=== PATIENT | male | born 1970 | race Caucasian/White ===

== ENCOUNTER 2024-04-10 16:36 | Emergency (ER) | payer OTHER, SELFPAY ==
[2024-04-10 16:41] VITALS: BP 145/91; PULSE 88; RESP 22; TEMP 36.7; O2SAT 100
--- NOTE | 2024-04-12 08:17 | NUR.NOTE ---
Nursing Note: Accessed patient chart to enter disposition that was not entered on day of patient leaving without being seen from ED.
== END 2024-04-10 18:46 ==
LOC: ER 20:10
DX: Z53.21 Procedure and treatment not carried out due to patient leaving prior to being seen by health care provider (principal)